=== PATIENT | female | born 2005 | race Caucasian/White ===

== ENCOUNTER 2024-01-14 16:35 | Emergency (ER) | payer SELFPAY ==
[2024-01-14 17:53] LABS: Influenza A by NAA Not Detected (NotDetected); Influenza B by NAA Not Detected (NotDetected); SARS-CoV-2 NAA Rapid Test Not Detected (NotDetected)
[2024-01-14] MEDS ORDERED: Dexamethasone 4 MG TAB ONE (18:37)
== END 2024-01-14 18:44 | disposition home or self-care (01) ==
LOC: CSHERS 16:35
DX: J20.9 Acute bronchitis, unspecified (principal); Z55.0 Illiteracy and low-level literacy
CPT/HCPCS: 99283; J8540